=== PATIENT | male | born 1955 | race Caucasian/White ===

== ENCOUNTER 2023-11-06 15:38 | Emergency (ER) | payer OTHER ==
[~2023-11-06] VITALS: Ht 154.9 cm; Wt 90.0 kg
[2023-11-06] MEDS ORDERED: ACET500T58 PO (17:15)
[2023-11-06] MEDS ORDERED: IBUP-1455 PO (17:15)
[2023-11-06] MEDS: KETOROLAC TROMETH 60MG/2ML VIAL IM ONE (17:23)
[2023-11-06 17:27] VITALS: BP 119/78; PULSE 65; RESP 18; TEMP 97.8; O2SAT 96
== END 2023-11-06 17:59 | disposition home or self-care (01) ==
LOC: ER 15:38
DX: M25.561 Pain in right knee (principal); X58.XXXA Exposure to other specified factors, initial encounter; Y93.89 Activity, other specified; Y92.89 Other specified places as the place of occurrence of the external cause; Y99.0 Civilian activity done for income or pay
CPT/HCPCS: 73562; 96372; 99283; J1885